=== PATIENT | female | born 1935 | race Caucasian/White ===

== ENCOUNTER 2016-05-18 21:03 | Inpatient (IN) | payer MEDICARE, OTHER ==
[2016-05-18 20:19] LABS: BASO % 0.5 % (0-2); EOS % 7.5 % (0-7); EOSINOPHIL ABSOLUTE COUNT 0.6 tho/cmm (0.0-0.7); HCT-HEMATOCRIT 42.1 % (34.0-49.0); HGB-HEMOGLOBIN 14.3 gm/dl (12.0-15.5); IMMATURE GRANULOCYTES ABSOLUTE 0.02 tho/cmm (0-0.03); IMMATURE GRANULOCYTES PERCENT 0.2 % (0-0.3); LYMPH % 30.9 % (20-45); LYMPH ABSOLUTE COUNT 2.5 tho/cmm (0.8-4.5); MCH (MEAN CORPUSCULAR HGB) 31.1 pg (28.0-32.0); MCV (MEAN CELL VOLUME) 91.5 fl (82.0-96.0); MEAN PLATELET VOLUME 9.6 cmc (9.4-12.4); MONO % 7.3 % (0-12); MONOCYTE ABSOLUTE COUNT 0.6 tho/cmm (0.0-1.2); NEUTROPHIL ABSOLUTE COUNT 4.3 tho/cmm (1.6-8.0); NEUTROPHIL-AUTOMATED 4.3 tho/cmm (1.6-8.0); NEUTROPHILS % 53.6 % (40-80); PLATELET COUNT 187 tho/cmm (150-450); RED CELL DISTRIBUTION WIDTH 13.1 % (12.4-16.4); WHITE BLOOD COUNT 8.1 tho/cmm (4.0-10.0)
[2016-05-18 20:34] LABS: ANION GAP 11 mmol/L (0-20); BLOOD UREA NITROGEN 22 mg/dl (6-24); CALCIUM 8.7 mg/dl (8.5-10.5); CARBON DIOXIDE-VENOUS 27 mmol/L (22-32); CHLORIDE 108 mmol/l (96-110); CREATININE 1.23 mg/dl (0.50-1.10); GLUCOSE 115 mg/dL (70-110); SODIUM 142 mmol/L (135-145); eGFR VALUE FOR BLACK 47 mL/Min
[~2016-05-18 21:03] MED LIST: ACTIVELLA TABLE1 TAB; ASPIR 8181 M1 PO; ASPIRIN EC81 MG PO; ATIVAN1 M2 PO; BENZONATATE200 MG PO; CENTRUM SILVER1 EAC3 PO; CILOSTAZOL50 M1 PO; COZAAR50 M1 PO; CYMBALTA60 M1 PO; EFFEXOR XR150 MG; FLECAINIDE ACET50 M1 PO; IMDUR30 MG PO; LEVOFLOXACIN500 MG PO; LEVOTHYROXINE150 MC3 PO; LORAZEPAM0.5 MG; LOSARTAN POTASS50 MG PO; LYRICA50 MG PO; METOPROLOL TART25 M1 PO; NEXIUM40 MG; NORTRIPTYLINE H10 MG PO; OMEPRAZOLE40 M2 PO; PLAVIX75 M1 PO; PROAIR HFA8.5 GM INH; PROTONIX40 M2 PO; RANITIDINE HCL150 MG; SIMVASTATIN20 MG PO; SINGULAIR10 M1 PO; SPIRIVA18 MC1 INH; SYMBICORT 160-1 PUFF INH; ULTRAM50 M1 PO; VITAMIN D5000 UNI2 PO; ZOCOR20 M1 PO
[2016-05-18] MEDS ORDERED: PROTONIX40 M2 PO (21:08)
[2016-05-18] MEDS ORDERED: FLECAINIDE ACET50 M1 PO (21:09)
[2016-05-18] MEDS ORDERED: METOPROLOL TART25 M1 PO (21:10)
[2016-05-19 05:16] LABS: CHOLESTEROL 181 mg/dl (120-200); HDL CHOLESTEROL 37 mg/dl (40-60); LDL CHOLESTEROL 116 mg/dl (0-99); TRIGLYCERIDES 141 mg/dl (<149); VLDL 28 mg/dl (0-30)
[2016-05-19] MEDS ORDERED: ZITHROMAX500 M2 PO (15:08)
[2016-05-19] MEDS ORDERED: ASPIRIN325 M3 PO (15:18)
[2016-05-19 15:38] LABS: PROTHROMBIN TIME 11.8 SECONDS (9.0-13.6)
== END 2016-05-19 15:56 | DRG 69 ==
LOC: EDMED 21:03 → EMR2 22:51 → 5EB 05-19 01:16
PROVIDERS: Emergency Medicine; Psychiatry & Neurology Neurology; ADMIT Internal Medicine
DX: G45.9 Transient cerebral ischemic attack, unspecified (principal); I73.9 Peripheral vascular disease, unspecified; I10 Essential (primary) hypertension; I25.10 Atherosclerotic heart disease of native coronary artery without angina pectoris; Z79.82 Long term (current) use of aspirin; Z79.02 Long term (current) use of antithrombotics/antiplatelets
CPT/HCPCS: A9577; G8978-GP-CJ; G8979-GP-CI; G8987-GO-CI; G8988-GO-CI; G8989-GO-CI; J1650; J7512